=== PATIENT | male | born 1965 | race African-American/Black ===

== ENCOUNTER 2017-04-28 15:00 | Emergency (ER) | payer OTHER ==
[~2017-04-28] VITALS: Ht 195.6 cm; Wt 109.0 kg
[2017-04-28] MEDS ORDERED: LOSA100T14 PO (15:39)
[2017-04-28] MEDS ORDERED: TRIMEQ (15:39)
[2017-04-28] MEDS: LOSARTAN POTASSIUM 100 MG TABLET PO ONE ×2 (17:20→17:27)
[2017-04-28] MEDS ORDERED: SODIUM CHLORIDE 0.9% 500 ML IV ONE (17:30)
[2017-04-28 18:24] LABS: CLARITY URINE CLEAR (CLEAR); COLOR URINE YELLOW (YELLOW); KETONES URINE NEGATIVE (NEGATIVE); LEUKOCYTE ESTERASE URINE NEGATIVE (NEGATIVE); NITRITE URINE NEGATIVE (NEGATIVE); OCCULT BLOOD URINE NEGATIVE (NEGATIVE); PROTEIN URINE NEGATIVE (NEGATIVE); SPECIFIC GRAVITY URINE 1.026 (1.005-1.030); UROBILINOGEN URINE 0.2 E.U./dL (0.2-1.0)
[2017-04-28 18:38] LABS: *AMPHETAMINES SCREEN URINE NEGATIVE (NEGATIVE); *BARBITURATES SCREEN URINE NEGATIVE (NEGATIVE); *BENZODIAZEPINES SCREEN URINE NEGATIVE (NEGATIVE); *COCAINE SCREEN URINE NEGATIVE (NEGATIVE); CANNABINOID URINE SCREEN PRESUMTIVE POSITIVE (NEGATIVE); METHADONE URINE SCREEN NEGATIVE (NEGATIVE); OPIATES URINE SCREEN NEGATIVE (NEGATIVE); PHENCYCLIDINE URINE SCREEN NEGATIVE (NEGATIVE)
[2017-04-28 18:56] LABS: BASOPHILS % 1.1 % (0.0-2.0); HEMATOCRIT. 44.1 % (42.0-52.0); HEMOGLOBIN. 15.1 g/dL (14.0-18.0); LYMPHOCYTES % 42.2 % (20.0-50.0); MEAN CORPUSCULAR HEMOGLOBIN 30.3 pg (28.0-32.0); MEAN CORPUSCULAR VOLUME 88.2 fL (80.0-94.0); MEAN PLATELET VOLUME 8.4 fl (7.4-10.4); MONOCYTES % 9.1 % (2.0-8.0); NEUTROPHILS % 44.6 % (40.0-76.0); PLATELET 166 x1000/uL (130-400); RED CELL DISTRIBUTION WIDTH 12.9 % (11.6-14.6)
[2017-04-28 19:03] LABS: CARBON DIOXIDE 30 mEq/L (21-32); CHLORIDE 109 mEq/L (98-107)
[2017-04-28] MEDS ORDERED: CEPHALEXIN 500MG CAPSULE PO ONE (20:00)
[2017-04-28 20:23] VITALS: BP 150/71
[2017-04-30 09:06] LABS: ABSOLUTE EOSINOPHILS 0.2 x10E3/uL (0.0-0.4); ABSOLUTE LYMPHOCYTES 2.8 x10E3/uL (0.7-3.1); ABSOLUTE MONOCYTES 0.4 x10E3/uL (0.1-0.9); ABSOLUTE NEUTROPHILS 2.6 x10E3/uL (1.4-7.0); BASOPHILS 1 % (.); HEMATOCRIT 44.2 % (37.5-51.0); HEMOGLOBIN 15.2 g/dL (12.6-17.7); IMMATURE GRANULOCYTES 0 % (.); LYMPHOCYTES 46 % (.); MEAN CORPUSCULAR HEMOGLOBIN 30.7 pg (26.6-33.0); MEAN CORPUSCULAR HGB CONC. 34.4 g/dL (31.5-35.7); MEAN CORPUSCULAR VOLUME 89 fL (79-97); MONOCYTES 7 % (.); NEUTROPHILS 43 % (.); PLATELETS 185 x10E3/uL (150-379); RBC 4.95 x10E6/uL (4.14-5.80); RED CELL DISTRIBUTION WIDTH 13.8 % (12.3-15.4)
[2017-05-01 13:09] LABS: % CD 3 POS. LYMPHOCYTES 59.2 % (57.5-86.2); % CD 4 POS. LYMPHOCYTES 30.4 % (30.8-58.5); % CD 8 POS. LYMPH 28.8 % (12.0-35.5); ABSOLUTE CD 3 1658 /uL (622-2402); ABSOLUTE CD 4 HELPER 851 /uL (359-1519); ABSOLUTE CD 8 SUPPRESSOR 806 /uL (109-897); CD4/CD8 RATIO 1.06 (0.92-3.72)
== END 2017-04-28 20:23 | disposition home or self-care (01) ==
LOC: ER 18:59
DX: L53.8 Other specified erythematous conditions (principal); I10 Essential (primary) hypertension; Z20.6 Contact with and (suspected) exposure to human immunodeficiency virus [HIV]
CPT/HCPCS: 36415; 71010; 80053; 80305; 81003; 83605; 85025; 86359; 86360; 87040; 87086; 87536; 93005; 93970; 96360; 96361; 99285; J7040